=== PATIENT | female | born 2005 | race Caucasian/White ===

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

== ENCOUNTER 2024-03-08 23:28 | Emergency (ER) | payer SELFPAY ==
[~2024-03-08] VITALS: Wt 83.9 kg
[~2024-03-08 23:28] MED LIST changes: +VIBRAMYCIN100 MG PO
[2024-03-08] MEDS ORDERED: LORazepam 1 MG TAB PO ONE (23:40)
== END 2024-03-09 01:07 | disposition home or self-care (01) ==
LOC: ED 23:28
DX: F41.9 Anxiety disorder, unspecified (principal)